=== PATIENT | female | born 2000 | race Hispanic/Latino ===

== ENCOUNTER 2019-01-03 14:55 | Emergency (ER) | payer MEDICARE ==
[~2019-01-03] VITALS: Ht 162.6 cm; Wt 55.0 kg
[2019-01-03] MEDS ORDERED: SODIUM CHLORIDE 0.9% 1000ML 1,000 ML IV SCH ×2 (16:30→16:45)
[2019-01-03] MEDS ORDERED: POTASSIUM CHLORIDE 20 MEQ TAB CR PO STA (16:48)
[2019-01-03] MEDS ORDERED: POTASSIUM CHLORIDE 20 MEQ TAB CR PO ONE (17:48)
[2019-01-03 18:35] VITALS: BP 111/62
== END 2019-01-03 18:35 | disposition home or self-care (01) ==
LOC: FSED 14:55
DX: O26.891 Other specified pregnancy related conditions, first trimester (principal); Z3A.10 10 weeks gestation of pregnancy; E86.0 Dehydration; R42 Dizziness and giddiness
CPT/HCPCS: 80053; 80307; 81003; 81025; 85025; 93005; 96365; 99284; J7030